=== PATIENT | male | born 1970 | race Two or more races ===

== ENCOUNTER → 2021-10-15 | Outpatient (CLI) | payer OTHER ==
[~2021-10-15] MED LIST: LIDOCAINE 1% MDV 20ML VIAL As Ordered ONE
[2021-10-15 14:26] VITALS: BP 132/75
== END ==
LOC: M IRPRO 12:55
PROVIDERS: ATTEND Otolaryngology
DX: E04.2 Nontoxic multinodular goiter (principal)

== ENCOUNTER → 2022-05-17 | Outpatient (CLI) | payer OTHER | LOC: M WHC 10:17 | PROVIDERS: ATTEND Otolaryngology | DX: E04.2 Nontoxic multinodular goiter (principal) ==